=== PATIENT | male | born 1950 | race Caucasian/White ===

== ENCOUNTER 2017-01-06 09:18 | Emergency (ER) | payer MEDICARE, MEDICAID ==
[~2017-01-06] VITALS: Ht 165.1 cm; Wt 119.5 kg
[~2017-01-06 09:18] MED LIST: ALBU8.5H IH; ASPI-556 PO; AZIT250T6 PO; FURO40 PO; GLIP5TAB11 PO; METF10002 PO; METO-323 PO; TIOT185 IH; TRAZ-147 PO
[2017-01-06] MEDS ORDERED: [UNRECOGNIZED DRUG - OTHER] TP (09:25)
[2017-01-06 09:32] LABS: GLUCOSE,POINT OF CARE 343 MG/DL (70-110)
[2017-01-06] MEDS ORDERED: SODIUM CHLORIDE 0.9% 1,000 ML IV ONE (10:00)
[2017-01-06 12:12] LABS: GLUCOSE,POINT OF CARE 302 MG/DL (70-110)
[2017-01-06 12:19] LABS: ANION GAP 7 mmol/L (8-16); CALCIUM, TOTAL 8.1 mg/dL (8.8-10.5); CARBON DIOXIDE 28 mmol/L (22-29); CHLORIDE 100 mmol/L (98-107); CREATININE 0.92 mg/dL (0.60-1.30); GLOMERULAR FILTR. RATE CALC > 60 mL/min (>60); POTASSIUM 4.4 mmol/L (3.5-5.1); SODIUM SERUM 135 mmol/L (136-145); UREA NITROGEN, BLOOD 18 mg/dL (7-18)
[2017-01-06 12:26] LABS: ALANINE AMINOTRANSFERASE 28 U/L (12-78); ALBUMIN 3.6 g/dL (3.4-5.0); ASPARTATE AMINOTRANSFERASE 16 U/L (15-37); BILIRUBIN,TOTAL 0.5 mg/dL (0.1-1.0); TOTAL PROTEIN, SERUM 7.4 g/dL (6.4-8.2)
[2017-01-06 12:27] LABS: APPEARANCE,URINE CLEAR (CLEAR); GLUCOSE, URINE (UA) >=1000 mg/dL (NEGATIVE); KETONES,URINE NEGATIVE (NEGATIVE); LEUKOCYTE ESTERASE ,URINE SMALL (NEGATIVE); OCCULT BLOOD,URINE SMALL (NEGATIVE); PROTEIN,URINE NEGATIVE (NEGATIVE)
[2017-01-06 12:29] LABS: ADD UA MICROSCOPIC YES
[2017-01-06] MEDS ORDERED: INSULIN REGULAR, HUMAN 100 UNITS/ML IVP ONE (12:30)
[2017-01-06 12:37] LABS: SQUAMOUS EPITHELIAL CELL,UR Few /LPF (None Seen)
[2017-01-06 13:00] VITALS: BP 142/74
[2017-01-06] MEDS ORDERED: CefTRIAXone SODIUM 1 GM/VIAL IM ONE (13:15)
[2017-01-06] MEDS ORDERED: LIDOCAINE HCL/PF 1% 2 ML VIAL IM ONE (13:15)
[2017-01-06 13:56] LABS: GLUCOSE,POINT OF CARE 211 MG/DL (70-110)
== END 2017-01-06 14:22 | disposition home or self-care (01) ==
LOC: EMS 09:19
DX: N48.22 Cellulitis of corpus cavernosum and penis (principal); B37.89 Other sites of candidiasis; N47.1 Phimosis; E11.65 Type 2 diabetes mellitus with hyperglycemia; L08.89 Other specified local infections of the skin and subcutaneous tissue; I11.9 Hypertensive heart disease without heart failure; I25.2 Old myocardial infarction; I25.10 Atherosclerotic heart disease of native coronary artery without angina pectoris; Z88.8 Allergy status to other drugs, medicaments and biological substances; Z79.82 Long term (current) use of aspirin
CPT/HCPCS: 36415; 80053; 81001; 82962; 96361; 96372; 96374; 99284; J0696; J1815; J3490; J7030